=== PATIENT | male | born 1965 | race American Indian/Alaskan Native ===

== ENCOUNTER 2018-11-26 07:43 | Day surgery (SDC) | payer OTHER ==
[~2018-11-26 07:43] MED LIST: ANCEF/STERILE WATER 2 GM/20 ML IV NR
[2018-11-26] MEDS ORDERED: LACTATED RINGERS 1,000 ML ONE (08:34)
[2018-11-26] MEDS ORDERED: SUBLIMAZE IV NR (09:05)
--- NOTE | 2018-11-26 09:15 | Anesthesia Day of Surgery ---
Anesthesia Day of Surgery - Day of Surgery Patient Examined: Yes Patient H&P Reviewed: Yes Patient is NPO: Yes Beta Blockers: Yes
--- NOTE | 2018-11-26 09:15 | Anesthesia Consultation ---
Anesthesia Consult and Med Hx Date of service: 11/26/18 - Airway Anesthetic Teeth Evaluation: Good ROM Head & Neck: Adequate Mental/Hyoid Distance: Adequate Mallampati Class: Class II Intubation Access Assessment: Probably Good - Pulmonary Exam CTA: Yes - Cardiac Exam Cardiac Exam: RRR - Pre-Operative Health Status ASA Pre-Surgery Classification: ASA2 Proposed Anesthetic Plan: General Nerve Block: IS - Pulmonary Hx Smoking: Yes (former smoker 2 yrs ago) Hx Respiratory Symptoms: No Hx Sleep Apnea: No (ANTONIO PRE SCREEN HIGH RISK.) - Cardiovascular System Hx Hypertension: Yes (took metoprolol and lisinopril/HCTZ this morning) Hx Heart Attack/AMI: No Hx Percutaneous Transluminal Coronary Angioplasty (PTCA): No Hx Cardia Arrhythmia: No - Central Nervous System Hx Seizures: No CVA: No Hx Back Pain: Yes (s/p lumbar laminectomy) - Gastrointestinal Hx Gastroesophageal Reflux Disease: No - Endocrine Hx Renal Disease: No Hx Liver Disease: No Hx Insulin Dependent Diabetes: No Hx Non-Insulin Dependent Diabetes: No Hx Thyroid Disease: No - Other Systems Hx Obesity: No - Additional Comments Anesthesia Medical History Comments: No hx anesthetic complications.
[2018-11-26] MEDS ORDERED: DECADRON ONE ×2 (09:24→11:22)
[2018-11-26] MEDS ORDERED: MARCAINE-EPI 0.5%-1:200,000 INFILTRATI ONE (09:24)
[2018-11-26] MEDS ORDERED: ADRENALINE P/F ONE (09:57)
[2018-11-26] MEDS ORDERED: DEPO-Medrol ONE ×2 (09:57→12:15)
[2018-11-26] MEDS ORDERED: MARCAINE-EPI 0.25%-1:200,000 INFILTRATI ONE (09:58)
[2018-11-26] MEDS ORDERED: LACTATED RINGERS 1,000 ML IV SCH (10:00)
[2018-11-26] MEDS ORDERED: VERSED IV NR (10:00)
[2018-11-26] MEDS ORDERED: NEURONTIN PO NR (10:00)
[2018-11-26] MEDS ORDERED: DIPRIVAN 10 MG/ML IV ONE (10:46)
[2018-11-26] MEDS ORDERED: XYLOCAINE CARDIAC IV ONE (10:46)
[2018-11-26] MEDS ORDERED: ZOFRAN ONE (11:22)
[2018-11-26] MEDS ORDERED: ROBINUL ONE (11:51)
[2018-11-26] MEDS ORDERED: SUBLIMAZE ONE (12:12)
[2018-11-26] MEDS ORDERED: MARCAINE 0.25% INFILTRATI ONE (12:16)
[2018-11-26] MEDS ORDERED: MARCAINE 0.5% INFILTRATI ONE (12:30)
[2018-11-26] MEDS ORDERED: DEPO-Medrol INTRA-ARTI ONE (12:30)
--- NOTE | 2018-11-26 12:30 | Procedure Note ---
Date of procedure: 11/26/18 Pre-op diagnosis: right shoulder pain Post-op diagnosis: other (impingement syndrome right shoulder) Procedure: Arthroscopy right shoulder with subacromial decompression Procedure The patient was brought to the OR after being given a scalene nerve block for postop pain management, he was placed on the table supine following induction with MAC anesthesia patient was turned into the left lateral decubitus position at which point the right shoulder was prepped and draped in the usual sterile manner. A timeout procedure was done to identify the patient and the correct operative site. Routine arthroscopic portals were made into the subacromial space examination of the subacromial space revealed patient had abundant bursal thickening with apparent partial thickness tears in the supraspinatus tendon along with a large bone spur noted at the distal acromion using a combination of arthroscopic shaver and tissue ablator the subacromial space was debrided of soft tissue and the arm was then rotated internally and externally to see if there were a full-thickness rotator cuff tear done was seen next the arthroscope was placed into the glenohumeral joint and examination here revealed the patient to have very little in the way of arthritic changes along the humeral head. In the glenoid fossa he was noted to have thinning of the labral tissue the biceps labral complex appeared to be intact without any undue tension noted next the arthroscope was removed from the glenohumeral joint and then repositioned into the subacromial space using a 5.5 bur or acromionizer the bone spurs were debrided. A second look was done to see if there are any any residual bony and soft tissue debris and none was seen the arthroscope was then removed the stab wounds were repaired routine postop dressings were applied and the patient tolerated the procedure Anesthesia: MAC, regional Surgeon: KAT MCALLISTER Bindery Leadperson: EDWARD VIRK Estimated blood loss: 50-100ml Pathology: none Condition: stable Disposition: PACU
[2018-11-26] MEDS: SUBLIMAZE IV PRN ×4 (13:32→14:55)
[2018-11-26] MEDS ORDERED: PERCOCET 5/325 PO PRN (14:41)
[2018-11-26] MEDS ORDERED: PERCOCET 5/325 ONE (14:46)
[2018-11-26 16:28] VITALS: BP 145/76
--- NOTE | 2018-11-26 17:10 | Post Anesthesia Evaluation ---
- Post Anesthesia Evaluation Patient Participated: Yes Airway Patent: Yes Stable Respiratory Function: Yes Nausea/Vomiting: No Temp > 96.8F: Yes Pain Manageable: Yes Adequeate Hydration: Yes Anesthesia Complications: No Block Receding Appropriately: Yes (block for postop analgesia)
== END 2018-11-26 15:15 | disposition home or self-care (01) ==
LOC: OR 07:43
PROVIDERS: ATTEND Orthopaedic Surgery
DX: M75.41 Impingement syndrome of right shoulder (principal); M25.511 Pain in right shoulder; I10 Essential (primary) hypertension; Z87.891 Personal history of nicotine dependence; Z79.899 Other long term (current) drug therapy; Z98.890 Other specified postprocedural states
CPT/HCPCS: 29822; 36415; 64415; 84132; J0171; J0690; J1030; J1100; J2001; J2250; J2405; J2704; J3010; J7120